=== PATIENT | female | born 1975 | race Caucasian/White ===

== ENCOUNTER 2017-08-31 03:27 | Emergency (ER) | payer BC ==
[~2017-08-31] VITALS: Ht 162.6 cm; Wt 91.6 kg
[2017-08-31] MEDS ORDERED: PRENATAL (03:33)
[2017-08-31 03:57] LABS: ABSOLUTE BASOPHILS 0.1 thou/uL (0.0-0.2); ABSOLUTE EOSINOPHILS 0.8 thou/uL (0.0-0.7); ABSOLUTE LYMPHOCYTES 2.8 thou/uL (0.8-5.3); ABSOLUTE MONOCYTES 0.7 thou/uL (0.0-1.2); ABSOLUTE NEUTROPHILS 8.3 thou/uL (1.6-8.1); EOSINOPHILS 6.1 %; HEMATOCRIT 41.9 % (37.0-47.0); HEMOGLOBIN 13.3 gm/dL (12.0-15.0); LYMPHOCYTES 22.1 %; MCH 22.3 pg (26.0-34.0); MCHC 31.7 g/dL (28.0-37.0); MCV 70.5 fL (80.0-100.0); MONOCYTES 5.7 %; MPV 7.5 fl. (7.2-11.1); NUCLEATED RBCS 0 /100WBC; PLATELET COUNT* 459 thou/uL (150-400); POLYS 65.1 %; RBC 5.95 mil/uL (4.20-5.00); RDW-CV 15.5 % (10.5-14.5); WBC 12.7 thou/uL (4.0-11.0)
[2017-08-31 04:08] LABS: LIPASE 205 U/L (73-393); TROPONIN-I LEVEL <0.06 ng/mL (<0.06)
[2017-08-31 04:54] LABS: URINE BILIRUBIN NEGATIVE (Negative); URINE BLOOD TRACE (Negative); URINE CLARITY CLEAR; URINE COLOR YELLOW; URINE GLUCOSE-RANDOM NEGATIVE (Negative); URINE KETONES NEGATIVE (Negative); URINE LEUKOCYTES-REFLEX NEGATIVE (Negative); URINE NITRITE-REFLEX NEGATIVE (Negative); URINE PROTEIN NEGATIVE (Negative); URINE SPECIFIC GRAVITY 1.025 (1.005-1.030); URINE UROBILINOGEN 0.2 E.U./dl (0.2-1.0)
[2017-08-31 06:00] LABS: CALCIUM 9.9 mg/dL (8.5-10.1); CREATININE 0.8 mg/dL (0.6-1.3); POTASSIUM 4.5 mmol/L (3.5-5.1)
[2017-08-31] MEDS ORDERED: ZOFRAN ODT4 MG PO (06:02)
[2017-08-31 06:04] LABS: ALBUMIN 4.1 g/dL (3.4-5.0); TOTAL BILIRUBIN 0.3 mg/dL (<0.1-1.0); TOTAL PROTEIN 8.3 g/dL (6.4-8.2)
[2017-08-31 06:23] LABS: HYPOCHROMASIA 1+; MICROCYTES 2+; PLATELET ESTIMATE INCREASED; POLYCHROMASIA 1+
[2017-08-31 06:33] VITALS: BP 113/59
--- NOTE | 2017-08-31 11:06 | EKG ---
[place] [address] ELECTROCARDIOGRAM REPORT Name: BRENDA BRIAN Room: [facility]#: [id number] Admission: 08/31/17 Attend Phys: Discharge: 08/31/17 Date of : 73 Report #: [id number] THIS REPORT FOR: //name// [facility] ED Test Date: 2017-08-31 Test Time: 03:32:10 Pat Name: BRENDA BRIAN Department: Room: Gender: F [employer] Plant Attendant: JEOVANY Oakes : 1975 Requested By: Esperanza Rioc Order Number: [id number] MD: Sujit May Measurements Intervals [place] Rate: 79 P: 12 NH: 147 QRS: 13 QRSD: 95 T: 43 QT: 380 QTc: 436 Interpretive Statements Sinus rhythm Minimal ST elevation, inferior leads Baseline wander in lead(s) I,II,aVR No previous ECG available for comparison Electronically Signed On 08-31-2017 11:06:06 [employer]PER[employer] by Sujit May [email or web address] <ELECTRONICALLY SIGNED> By: Sujit May MD, [facility] 08/31/17 [id number] Sujit May MD, FACC /EPI
== END 2017-08-31 06:30 | disposition home or self-care (01) ==
LOC: M.ERS 03:27
PROVIDERS: Personal Emergency Response Attendant
DX: K21.9 Gastro-esophageal reflux disease without esophagitis (principal); Z88.0 Allergy status to penicillin; Z88.8 Allergy status to other drugs, medicaments and biological substances

== ENCOUNTER 2021-03-20 22:58 | Emergency (ER) | payer OTHER ==
[~2021-03-20] VITALS: Ht 162.6 cm; Wt 98.0 kg
[~2021-03-20 22:58] MED LIST: PRENATAL; ZOFRAN ODT4 MG PO
[2021-03-20 23:04] VITALS: BP 152/85
== END 2021-03-20 23:45 | disposition left against medical advice (07) ==
LOC: M.ERS 22:58
DX: K13.79 Other lesions of oral mucosa (principal); R20.0 Anesthesia of skin; Z53.21 Procedure and treatment not carried out due to patient leaving prior to being seen by health care provider; Z88.0 Allergy status to penicillin; Z88.5 Allergy status to narcotic agent

== ENCOUNTER 2021-03-21 00:02 | Emergency (ER) | payer OTHER ==
[~2021-03-21] VITALS: Ht 162.6 cm; Wt 98.0 kg
[2021-03-21 00:07] VITALS: BP 160/80
== END 2021-03-21 02:59 | disposition home or self-care (01) ==
LOC: M.ERS 00:02
DX: R59.0 Localized enlarged lymph nodes (principal); K13.79 Other lesions of oral mucosa; R20.0 Anesthesia of skin; Z98.890 Other specified postprocedural states; Z88.6 Allergy status to analgesic agent